=== PATIENT | female | born 1935 | race Caucasian/White ===

== ENCOUNTER 2018-11-07 15:51 | Emergency (ER) | payer MEDICARE, OTHER ==
[~2018-11-07] VITALS: Ht 160 cm; Wt 72.7 kg
[~2018-11-07 15:51] MED LIST: ALBU8.5H5 INH; ALPR0.5T PO; ASPI81TA52 PO; AUG875 PO; CELE200C PO; DICL100G37 TOP; DICL1ADH6 TP; DOXA8TAB65 PO; DOXE3TAB3 PO; GUAI118L94 PO; OSEL75CA23 PO; RESTOP4 BOTH EYES; ROSU20TA PO; [UNRECOGNIZED DRUG - CODE] BOTH EYES
[2018-11-07 15:58] VITALS: Ht 160 cm; Wt 72.7 kg
[2018-11-07] MEDS ORDERED: ALBUTEROL 0.083% (NEB) 2.5 MG/3 ML AMP HHN STA (16:26)
[2018-11-07] MEDS ORDERED: LORAZEPAM 0.5 MG TAB PO ONE (16:30)
--- NOTE | 2018-11-07 16:52 | ERD ---
ER Documentation Chief Complaint Chief Complaint SOB X 1 WEEK WITH RECENT PACEMAKER PLACEMENT HPI 82-year-old woman with history of anxiety presents feeling anxious and complaining of shortness of breath times 1 week. She denies fevers or chills, no chest pain, no calf or leg swelling, no headache or blurry vision. Patient does have a long history of peripheral edema and is status post pacemaker placement to the left chest last week. Patient was transported here by EMS without further complications ROS All systems reviewed and are negative except as per history of present illness. Medications Home Meds Active Scripts Albuterol Sulfate* (Proair HFA*) 8.5 Gm Hfa.aer.ad, 2 PUFF INH Q6H PRN for WHEEZING AND SOB, #1 INHALER Prov:CHRIS DARNELL MD 11/07/18 Alprazolam* (Xanax*) 0.5 Mg Tab, 0.5 MG PO Q8H PRN for ANXIETY, #12 TAB Prov:CHRIS DARNELL MD 08/17/15 Albuterol Sulfate* (Albuterol Sulfate* HFA) 8.5 Gm Hfa.aer.ad, 1-2 PUFF INH Q4 PRN for SHORTNESS OF BREATH, #1 EA Prov:CHRIS DARNELL MD 08/17/15 Oseltamivir Phosphate* (Tamiflu*) 75 Mg Capsule, 75 MG PO BID, #9 CAP Prov:CHRIS DARNELL MD 08/17/15 Reported Medications Diclofenac Sodium* (Voltaren* Gel) 1% -100 Gm Gel, 2 GM TOP QID, #1 TUB 08/17/15 Aspirin (Low Dose Aspirin) 81 Mg Tablet.dr, 81 MG PO DAILY 08/17/15 Loteprednol Etabonate* (Lotemax*) 5 Ml Drops.susp, 1 DROP BOTH EYES QID, EA 08/17/15 Cyclosporine* (Restasis* Oph) 32 Ea Droperette, 1 DROP BOTH EYES Q12, #1 BOX 08/17/15 Doxepin Hcl* (Silenor*) 3 Mg Tablet, 3 MG PO HS PRN for INSOMNIA, TAB 08/17/15 Celecoxib* (Celebrex*) 200 Mg Capsule, 200 MG PO DAILY, CAP 08/17/15 Diclofenac Epolamine (Flector) 30 Ea Adh..patch, 30 EA TP DAILY 08/17/15 Doxazosin Mesylate* (Doxazosin Mesylate*) 8 Mg Tablet, 8 MG PO HS, TAB 08/17/15 Rosuvastatin Calcium* (Crestor*) 20 Mg Tablet, 20 MG PO QHS, #30 TAB 08/17/15 Guaifenesin-Codeine Phosphate* (Guaifenesin* with Codeine Liq) 120 Ml Liquid, 5 ML PO Q4H PRN for COUGH, ML 08/17/15 Amoxicillin-Clavulanate K* (Augmentin*) 875 Mg Tab, 875 MG PO BID, #20 TAB 08/17/15 Allergies Allergies: Coded Allergies: No Known Allergy (Unverified , 08/17/15) PMhx/Soc CAD, status post pacemaker, anxiety, hypertension Anesthesia Reaction: No Hx Neurological Disorder: No Hx Respiratory Disorders: No Hx Cardiac Disorders: Yes (HTN) Hx Psychiatric Problems: No Hx Miscellaneous Medical Probl: No Hx Alcohol Use: No Hx Substance Use: No Hx Tobacco Use: No FmHx Family History: No diabetes Physical Exam Vitals Vital Signs Date Temp Pulse Resp B/P (MAP) Pulse Ox O2 O2 Flow FiO2 Time Delivery Rate 11/07/18 98.4 64 18 119/94 100 Room Air 18:18 (102) 11/07/18 68 19 95 21 16:40 11/07/18 61 17 157/91 98 Room Air 16:33 (113) 11/07/18 98.2 60 18 145/75 100 15:58 (98) Physical Exam GENERAL: Well-developed, well-nourished, appears anxious, afebrile HEENT: Moist mucous membranes, pink conjunctiva, no cervical spine tenderness or step-off deformities, NEURO: Alert and oriented 3, cranial nerves II through XII intact bilaterally, pupils equal round reactive to light, no focal deficits or facial asymmetry, sensation intact distally Strength 5/5 in upper and lower extremities bilaterally CARDIAC: Regular rate and rhythm, no murmurs rubs or gallops LUNGS: Clear bilaterally no wheezing crackles or stridor ABDOMEN: Soft nontender, no guarding, no rigidity, no rebound, no psoas sign no obturator sign. Normoactive bowel sounds SKIN: Warm and dry to touch, incision to the left chest appears clean and dry the wound is well approximated there is no purulent discharge, erythema or induration. EXTREMITIES: No clubbing cyanosis or edema, calves are bilaterally symmetrical, no Homans sign, no popliteal cord sign. Distal pulses equal and bilateral PSYCH: Anxious appearing Result Diagram: 11/07/18 1640 11/07/18 1640 Results 24 hrs Laboratory Tests Test 11/07/18 16:40 White Blood Count 5.2 10^3/ul Red Blood Count 3.91 10^6/ul Hemoglobin 11.5 g/dl Hematocrit 35.4 % Mean Corpuscular Volume 90.5 fl Mean Corpuscular Hemoglobin 29.4 pg Mean Corpuscular Hemoglobin Concent 32.5 g/dl Red Cell Distribution Width 15.1 % Platelet Count 226 10^3/UL Mean Platelet Volume 9.5 fl Immature Granulocytes % 0.400 % Neutrophils % 59.1 % Lymphocytes % 28.8 % Monocytes % 8.4 % Eosinophils % 2.5 % Basophils % 0.8 % Nucleated Red Blood Cells % 0.0 /100WBC Immature Granulocytes # 0.020 10^3/ul Neutrophils # 3.1 10^3/ul Lymphocytes # 1.5 10^3/ul Monocytes # 0.4 10^3/ul Eosinophils # 0.1 10^3/ul Basophils # 0.0 10^3/ul Nucleated Red Blood Cells # 0.0 10^3/ul Sodium Level 141 mmol/L Potassium Level 4.5 mmol/L Chloride Level 107 mmol/L Carbon Dioxide Level 28 mmol/L Anion Gap 6 Blood Urea Nitrogen 17 mg/dl Creatinine 0.94 mg/dl Est Glomerular Filtrat Rate mL/min mL/min Glucose Level 126 mg/dl Calcium Level 9.6 mg/dl Total Bilirubin 0.3 mg/dl Direct Bilirubin 0.00 mg/dl Indirect Bilirubin 0.3 mg/dl Aspartate Amino Transf (AST/SGOT) 27 IU/L Alanine Aminotransferase (ALT/SGPT) 23 IU/L Alkaline Phosphatase 98 IU/L Troponin I < 0.012 ng/ml Total Protein 6.8 g/dl Albumin 3.7 g/dl Globulin 3.10 g/dl Albumin/Globulin Ratio 1.19 Lipase 41 U/L Current Medications Medications Dose Sig/Bernadine Start Time Status Last (Trade) Ordered Route PRN Stop Time Admin Dose Reason Admin Lorazepam 0.5 mg ONCE ONCE 11/07/18 DC 11/07/18 (Ativan) PO 16:30 11/07/18 16:56 16:31 Albuterol 5 mg ONCE STAT 11/07/18 DC 11/07/18 (Proventil HHN 16:26 11/07/18 16:39 0.083% (Neb)) 16:27 Procedures/MDM IV line was established patient was placed on alarm security or surveillance monitor rhythm strip revealed a sinus rhythm at about 60 bpm with upright P and T waves. Patient was afebrile EKG performed, read by me: 60 bpm, normal sinus rhythm, normal axis, no acute ST segment changes, narrow QRS complex, with good R-wave progression in precordial leads. 1 view chest x-ray performed, read by me reveals a pacemaker in left chest, r ight lower lobe infiltrate, no pneumothorax, no air under the diaphragm I administered lorazepam 0.5 mg p.o. x1 and albuterol 5 mg via nebulizer. CBC was normal, electrolytes revealed mild dehydration, liver function tests were normal, troponin was negative Differential diagnoses considered, included but not limited to acute coronary syndrome, pulmonary embolism, aortic dissection, abdominal aortic aneurysm, sepsis, stroke, meningitis, encephalitis, pneumonia, appendicitis, cholecystitis, bowel obstruction, pyelonephritis, nephrolithiasis, cystitis, as well as metabolic, hematologic, and electrolyte abnormalities. As well as abscess, cellulitis, fractures, and dislocations. Patient feels much better at this time, and vital signs are normal, symptoms have improved. I did give strict instructions to return to the ED if symptoms continue or worsen, patient will otherwise follow-up with primary care physician. Patient understood instructions and agreed to plan. Disclaimer: Inadvertent spelling and grammatical errors are likely due to EHR/dictation software use and do not reflect on the overall quality of patient care. Also, please note that the electronic time recorded on this note does not necessarily reflect the actual time of the patient encounter. Departure Diagnosis: Primary Impression: Shortness of breath Additional Impression: Anxiety Condition: Good CHRIS DARNELL MD Nov 07, 2018 16:52
[2018-11-07] MEDS ORDERED: ALBU8.5H8 INH (17:30)
[2018-11-07 18:18] VITALS: BP 119/94; PULSE 64; RESP 18
== END 2018-11-07 18:18 | disposition home or self-care (01) ==
LOC: E/R 15:51
DX: R06.02 Shortness of breath (principal); I10 Essential (primary) hypertension; I25.10 Atherosclerotic heart disease of native coronary artery without angina pectoris; F41.9 Anxiety disorder, unspecified; Z95.0 Presence of cardiac pacemaker; Z79.82 Long term (current) use of aspirin
CPT/HCPCS: 36415; 71045; 80053; 83690; 84484; 85025; 93005; 94664

== ENCOUNTER 2019-03-04 15:13 | Emergency (ER) | payer MEDICARE, OTHER ==
[~2019-03-04] VITALS: Ht 160 cm; Wt 89.0 kg
[~2019-03-04 15:13] MED LIST changes: +ALBU8.5H8 INH; +CRES20 PO; -ROSU20TA PO
[2019-03-04 15:33] VITALS: Ht 160 cm; Wt 89.0 kg
[2019-03-04] MEDS ORDERED: IBUPROFEN 600 MG TAB PO ONE (16:00)
[2019-03-04] MEDS ORDERED: IBUP-1542 PO (17:25)
[2019-03-04 17:35] VITALS: BP 156/73; PULSE 83; RESP 18
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
== END 2019-03-04 17:35 | disposition home or self-care (01) ==
LOC: E/R 15:13
DX: S20.211A Contusion of right front wall of thorax, initial encounter (principal); I10 Essential (primary) hypertension; J45.909 Unspecified asthma, uncomplicated; S50.812A Abrasion of left forearm, initial encounter; E66.9 Obesity, unspecified; V43.92XA Unspecified car occupant injured in collision with other type car in traffic accident, initial encounter; Z68.34 Body mass index [BMI] 34.0-34.9, adult; Z95.0 Presence of cardiac pacemaker
CPT/HCPCS: 71045; 73090